=== PATIENT | female | born 1940 | race Caucasian/White ===

== ENCOUNTER → 2016-12-25 | Outpatient (CLI) | payer MEDICARE, MEDICAID ==
[~2016-12-25] MED LIST: ASPI-COR81 M1 PO; BACTRIM DS 8001 TA1 PO; COLACE100 MG PO; CRANBERRY400 MG PO; DONEPEZIL 10MG10 MG PO; FAMOTIDINE 20MG20 MG PO; FERROUS SULFAT325 M2 PO; ILOTYCIN5 MG/GM OP; IMODIUM A-D2 MG PO; LACTULOSE10 GM/15 M PO; LEVOTHYROXIN0.088 MG PO; LOPID 600MG TA600 MG PO; LORAZEPAM0.5 MG/TAB FT; LORAZEPAM0.5 MG/TAB PO; NAMENDA10 MG PO; OMEGA-31000 MG PO; OMEPRAZOLE20 MG PO; PAIN RELIEVER500 M1 PO; REMERON SOLTAB15 MG PO; RISPERDAL M-TAB3 MG PO; SERTRALINE 50MG50 MG PO; VITAMIN C500 M3 PO; VITAMIN D32000 IU PO
--- NOTE | 2016-12-25 14:41 | RADIOLOGY REPORT PS360 ---
BONE DENSITOMETRY(HIP:LT SPINE HISTORY: ACUTE T12 FX, POST MENOAPSUAL ORDERING PHYSICIAN: Carson Galvan MD PATIENT AGE: 76 years COMPARISON: None FINDINGS: The BMD measured at the left femoral neck is 0.626 g/cm squared with a T score of -3. This is considered Osteopenic according to the World Health Organization criteria. Fracture risk is high. Treatment is advised. IMPRESSION: Osteoporosis with high fracture risk. Recommend follow-up exam December 2017
--- NOTE | 2016-12-25 17:26 | RADIOLOGY REPORT PS360 ---
CT LUMBAR SPINE W/O CONTRAST CLINICAL INDICATION: Low back pain, compression fracture ACUTE T12 FX ORDERING PHYSICIAN: Carson Galvan MD PATIENT AGE: 76 years COMPARISON: Prior abdomen CT of 01/25/2015 TECHNIQUE:Axial, sagittal, and coronal images are generated and reviewed without contrast FINDINGS: There is a transitional segment at the lumbosacral junction and is labeled as S1 but could also be thought of as a 6 lumbar vertebra. There is normal alignment. There is mild wedge compression changes involving the L1 vertebral body superiorly with loss of height superiorly of approximately 15%. There is minimal retropulsion of the posterior superior aspect of L1 x 6 mm. There is some impaction of the fragments at the compression site. There are mild anterior osteophytes from L1 to S1. There is slight decrease in the disc space at L1-L2 and L2-L3. Mild bulging disc is noted at L3-L4 and L4-L5. Facet hypertrophic changes are noted also at L4-L5 with mild bilateral lateral recess and foraminal narrowing slightly greater on the right. Mild facet hypertrophy also noted at L5-S1. Incidental note made of sigmoid diverticulosis. There is mild dilatation of the infrarenal abdominal aorta fusiform in nature measuring approximately 2.3 cm. Small cystic area is present in the right lobe of the liver measuring 2 cm unchanged from prior abdomen CT. IMPRESSION: 1. Mild wedge compression fracture of L1 with kyphosis and retropulsion of the posterior superior fragment x 6 mm. This fracture may be acute or subacute. 2. Mild lumbar spondylosis with degenerative disc disease, bulging disc, and facet arthritic changes as detailed above 3. Mild fusiform dilatation of the infrarenal abdominal aorta at 2.3 cm
== END ==
LOC: RAD 12:41
DX: M54.6 Pain in thoracic spine (principal); Z78.0 Asymptomatic menopausal state

== ENCOUNTER → 2017-02-10 | Outpatient (CLI) | payer MEDICARE, MEDICAID ==
--- NOTE | 2017-02-10 21:57 | RADIOLOGY REPORT PS360 ---
PROCEDURE: 2-D M-mode and color Doppler study INDICATIONS FOR THE TEST: Chest pain COPD Heart Murmur Tobacco Smoking Palpitations Fatigue Syncope Edema Hypertension+Diabetes Mellitus Rheumatic Fever SOB+SANDOVAL Obesity Hyperlipidemia+ Family History HD Additional History PATIENT INFORMATION HEIGHT: 62 WEIGHT:120 GENDER: Female B/P:120/80 2-D/M-MODE INTERPRETATION: 2-D MEASUREMENTS OBSERVED VALUES IN CMS Right Ventricular Dimension (RVDd) 3.2 Interventricular Septum (Thickness)(IVsd) 1.6 Left Ventricular Internal Dimensions(LVIDd) 4.0 Left Ventricular Posterior Wall (Thickness)(LVPWd) 1.2 Aortic Root 3.1 Aortic Cusp Separation 0.9 Left Atrial Dimensions (LAD) 5.9 2D 1. Left atrium is moderately enlarged, left ventricle is normal size, there is mild concentric left ventricular hypertrophy, visually estimated ejection fraction 50% with no obvious regional wall motion abnormality, endocardial surfaces are somewhat poorly visualized. 2. The right atrium and right ventricle are mildly enlarged with normal contractility. 3. The aortic valve is minimally thickened and fibrosed. 4. The mitral and tricuspid valve leaflets are minimally thickened. 5. The pulmonic valve is poorly visualized. 6. No significant pericardial effusion noted. DOPPLER INTERROGATION: Doppler interrogation of the aortic, mitral and tricuspid valvular presence of mild mitral and tricuspid regurgitation, tricuspid regurgitant jet velocity is insufficient for calculation of the right ventricular systolic pressure, grade 1 diastolic dysfunction seen with tissue Doppler evidence of raised left atrial pressure. CONCLUSION: 1. Moderately enlarged left atrium, normal left ventricular size, mild concentric left ventricular hypertrophy, visually estimated ejection fraction 50% with no obvious regional wall motion abnormality, grade 1 diastolic dysfunction seen with tissue Doppler evidence of raised left atrial pressure. 2. Mildly enlarged right ventricle with normal contractility. 3. Mild mitral and tricuspid regurgitation. 4. No significant pericardial effusion noted.
== END ==
LOC: RT 02-04 13:00
DX: R06.02 Shortness of breath (principal); I11.9 Hypertensive heart disease without heart failure; Z95.0 Presence of cardiac pacemaker